=== PATIENT | female | born 1985 | race Native Hawaiian/Other Pacific Islander ===

== ENCOUNTER → 2021-06-02 | Outpatient (CLI) | payer BC | LOC: LABW 12:50 | PROVIDERS: ATTEND Nurse Practitioner Family | DX: Z20.828 Contact with and (suspected) exposure to other viral communicable diseases (principal) | CPT/HCPCS: 87502 ==

== ENCOUNTER 2022-09-09 14:59 | Outpatient (CLI) | payer BC | END 2022-09-09 23:06 | disposition home or self-care (01) | LOC: RAD 14:59 | PROVIDERS: ATTEND Internal Medicine | DX: M25.511 Pain in right shoulder (principal) ==

== ENCOUNTER 2023-08-06 09:18 | Outpatient (CLI) | payer BC | END 2023-08-06 20:04 | disposition home or self-care (01) | LOC: MRI 09:18 | PROVIDERS: ATTEND Internal Medicine | DX: M54.59 Other low back pain (principal); M54.17 Radiculopathy, lumbosacral region; M62.838 Other muscle spasm ==